=== PATIENT | female | born 1990 | race Caucasian/White ===

== ENCOUNTER 2024-03-04 21:26 | Emergency (ER) | payer BC ==
[~2024-03-04] VITALS: Ht 162.6 cm; Wt 59.0 kg
[2024-03-04] MEDS ORDERED: ONDANSETRON 4 MG/2 ML VIAL ONE (22:13)
[2024-03-04] MEDS ORDERED: FAMOTIDINE. 20 MG/2 ML VIAL IV ONE (22:13)
[2024-03-04 22:16] LABS: BASOPHILS % (AUTO) 0.3 % (0.0-2.0); EOSINOPHILS % (AUTO) 0.2 % (0.0-7.0); HEMATOCRIT 48.2 % (31.2-41.9); HEMOGLOBIN 16.5 g/dL (10.9-14.3); LYMPHOCYTES # (AUTO) 0.7 K/uL (0.8-4.8); LYMPHOCYTES % (AUTO) 8.2 % (20.5-51.5); MEAN CORPUSCULAR HEMOGLOBIN 30.5 uug (24.7-32.8); MEAN CORPUSCULAR HGB CONC 34 g/dL (32.3-35.6); MEAN CORPUSCULAR VOLUME 89.2 fL (75.5-95.3); MONOCYTES # (AUTO) 0.3 K/uL (0.1-1.30); MONOCYTES % (AUTO) 2.9 % (0.0-11.0); NEUTROPHILS # (AUTO) 7.9 K/uL (1.8-8.9); NEUTROPHILS % (AUTO) 88.4 % (38.5-71.5); PLATELET COUNT (AUTO) 179 K/uL (179-408); RED BLOOD CELL COUNT(AUTO) 5.41 MIL/uL (3.63-4.92); RED CELL DISTRIBUTION WIDTH 12.2 % (12.3-17.7); WHITE BLOOD COUNT (AUTO) 8.9 K/uL (3.8-11.8)
[2024-03-04] MEDS: ONDANSETRON 4 MG/2 ML VIAL IV ONE (22:17)
[2024-03-04] MEDS: IV NORMAL SALINE 1000 ML BAG IV ONE (22:17)
[2024-03-04] MEDS: FAMOTIDINE. 20 MG/2 ML VIAL IV ONE (22:17)
[2024-03-04 22:26] LABS: ALBUMIN 4.4 g/dL (3.4-5.0); BILIRUBIN,DIRECT 0.3 mg/dL (0.0-0.2); BILIRUBIN,TOTAL 1.3 mg/dL (0.2-1.0); CALCIUM 9.4 mg/dL (8.5-10.1); CREATININE 0.7 mg/dL (0.6-1.3); POTASSIUM 3.9 mmol/L (3.5-5.1); TOTAL PROTEIN, SERUM 8.4 g/dL (6.4-8.2)
[2024-03-04 23:11] LABS: *KETONES,URINE 3+ (NEGATIVE); *PROTEIN,URINE TRACE (NEGATIVE); *UROBILINOGEN,URINE 0.2 E.U./dl (NORMAL); LEUKOCYTE ESTERASE ,URINE TRACE (NEGATIVE); NITRITE, URINE NEGATIVE (NEGATIVE); UGLUCOSE NEGATIVE (NEGATIVE)
[2024-03-04 23:13] LABS: *BLOOD, URINE TRACE (NEGATIVE)
[2024-03-04 23:15] LABS: *BILIRUBIN,URIN 1+ (NEGATIVE)
[2024-03-04 23:16] LABS: *CLARITY,URINE HAZY (CLEAR); *COLOR,URINE DARK YELLOW (YELLOW)
[2024-03-04 23:22] LABS: BACTERIA,URINE FEW /HPF (NONE SEEN); SQUAMOUS EPITHELIAL CELL,UR MODERATE /HPF (NONE SEEN); YEAST,URINE RARE /HPF (NONE SEEN)
[2024-03-04 23:23] LABS: *URINE HCG, QUAL NEGATIVE (NEGATIVE); MUCUS,URINE MODERATE /LPF (0-FEW)
[2024-03-04] MEDS ORDERED: METOCLOPRAMIDE HCL 10 MG TABLET ONE (23:23)
[2024-03-04] MEDS: METOCLOPRAMIDE HCL 10 MG TABLET PO ONE (23:24)
[2024-03-04] MEDS ORDERED: METO-543 PO (23:43)
[2024-03-04 23:53] VITALS: BP 112/82; TEMP 98.1; O2SAT 98
== END 2024-03-04 23:52 | disposition home or self-care (01) ==
LOC: ER 21:31
DX: K52.9 Noninfective gastroenteritis and colitis, unspecified (principal); R11.2 Nausea with vomiting, unspecified; R10.9 Unspecified abdominal pain; R10.2 Pelvic and perineal pain; G43.909 Migraine, unspecified, not intractable, without status migrainosus; E86.0 Dehydration
CPT/HCPCS: 99284; 96374; 96361; 96375; 80076; 80048; 81001; 84703; 83690; 85025; 36415; J3490; J2405; J7040; A4606; A4663; J8597